=== PATIENT | male | born 1980 | race Caucasian/White ===

== ENCOUNTER 2022-09-23 11:16 | Emergency (ER) | payer BC ==
[2022-09-23 11:21] VITALS: TEMP 97.6; BMI 30.2
[2022-09-23] MEDS ORDERED: SODIUM CHLORIDE 1,000 ML IV SCH (11:30)
[2022-09-23 11:54] VITALS: RESP 14
[2022-09-23] MEDS ORDERED: ACETAMINOPHEN 500 MG TABLET (FP) PO ONE (11:55)
[2022-09-23 11:57] LABS: BASO % 0.3 % (0-2.0); EOS % 0.7 % (0-4.5); HEMATOCRIT 43.3 % (35.4-49); MCH 26.7 pg (25.7-33.7); MCHC 32.4 g/dl (32.0-35.9); MEAN CELL VOLUME 82.4 fl (80-96); MEAN PLT VOLUME 7.9 fl (7.5-11.1); MONO % 4.6 % (3.8-10.2); NEUT % 83.4 % (42.8-82.8); PLATELET COUNT 203 10^3/uL (134-434); RBC 5.25 M/mm3 (4.00-5.60); RDW 14.6 % (11.9-15.9); WHITE BLOOD COUNT 9.8 K/mm3 (4.0-10.0)
[2022-09-23] MEDS ORDERED: MECLIZINE HCL 25 MG TABLET (FP) PO ONE (12:01)
[2022-09-23 12:04] LABS: INR 1.07 (0.83-1.09); PROTHROMBIN TIME (PATIENT) 12.4 SEC (9.7-13.0)
[2022-09-23] MEDS ORDERED: ACETAMINOPHEN 500 MG TABLET (FP) ONE (12:05)
[2022-09-23 12:06] LABS: ACTIVATED PTT 28.7 SECONDS (25.2-36.5)
[2022-09-23] MEDS ORDERED: MECLIZINE HCL 25 MG TABLET (FP) ONE (12:12)
[2022-09-23 12:17] LABS: POTASSIUM 4.1 mmol/L (3.5-5.1)
[2022-09-23 12:19] LABS: CALCIUM 8.5 mg/dL (8.5-10.1)
[2022-09-23 12:20] LABS: ALBUMIN 3.6 g/dl (3.4-5.0)
[2022-09-23 12:22] LABS: BLOOD UREA NITROGEN 13.4 mg/dL (7-18)
[2022-09-23 12:25] LABS: TOT PROT 6.6 g/dl (6.4-8.2)
[2022-09-23] MEDS ORDERED: METOCLOPRAMIDE HCL INJECTION 10 MG/2 ML VIAL IVPUSH ONE (13:27)
[2022-09-23] MEDS ORDERED: METOCLOPRAMIDE HCL INJECTION 10 MG/2 ML VIAL ONE (13:30)
[2022-09-23 14:54] VITALS: BP 124/82; PULSE 74
== END 2022-09-23 15:11 | disposition home or self-care (01) ==
LOC: JER 11:16
PROC: 3E033GC Introduction of Other Therapeutic Substance into Peripheral Vein, Percutaneous Approach (ICD-10-PCS; principal; 2022-09-23)
DX: R42 Dizziness and giddiness (principal); Z20.822 Contact with and (suspected) exposure to COVID-19
CPT/HCPCS: 0241U-QW; 36415; 70450-TC; 70496-TC; 70498-TC; 80053; 80061; 82550; 82962; 83036; 84484; 85025; 85610; 85730; 86850; 86900; 86901; 93005; 93010; 99285-25; Q9967

== ENCOUNTER 2024-08-18 07:42 | Day surgery (SDC) | payer BC ==
[2024-08-17 13:22] VITALS: BMI 30.3
[2024-08-18 11:07] VITALS: TEMP 98.2
[2024-08-18 11:48] VITALS: BP 123/63; PULSE 67; RESP 1
== END 2024-08-18 11:48 | disposition home or self-care (01) ==
LOC: JASU-ENDO 07:42
PROVIDERS: ATTEND Internal Medicine Gastroenterology
PROC: 0DJD8ZZ Inspection of Lower Intestinal Tract, Via Natural or Artificial Opening Endoscopic (ICD-10-PCS; principal; 2024-08-18 10:45)
DX: Z12.11 Encounter for screening for malignant neoplasm of colon (principal); K64.8 Other hemorrhoids; K57.30 Diverticulosis of large intestine without perforation or abscess without bleeding